=== PATIENT | female | born 1950 | race Caucasian/White ===

== ENCOUNTER 2018-06-07 06:33 | Emergency (ER) | payer MEDICARE, OTHER ==
[2018-06-07] MEDS ORDERED: ATOR10TA24 PO (06:57)
--- NOTE | 2018-06-07 07:16 | ER Report ---
History and Physical Time Seen By MD: 07:16 Hx. of Stated Complaint: PT ESCORTED IN BY EMS. PT WAS TRAVELING TO [place] FROM [facility]. PT RAN OUT OF GAS BY [place]. PTS FAMILY WAS EXPECTING HER ARRIVAL 16 HOURS AGO. WHEN EMS ARRIVED PT WAS CONFUSED, BP WAS HIGH. DECISION WAS MADE TO COME IN TO BE EVALUATED. PTS FAMILY ON THEIR WAY FROM [place]. HPI/ROS CHIEF COMPLAINT: Altered mental status HISTORY OF PRESENT ILLNESS: Patient is a 67-year-old female who is brought in by EMS after being found near [place] patient had been traveling from [facility] to [place] when she ran out of gas. She is was found to be somewhat confused and hypertensive so she was brought into the emergency department for evaluation. Apparently the family was expecting her 16 hours prior to when she was brought into the emergency department. They are currently aware that she isn't I [facility] and are traveling from [place] to get her. REVIEW OF SYSTEMS: Constitutional: [No fever, no chills.] Eyes: [No discharge.] ENT: [No sore throat.] Cardiovascular: [No chest pain, no palpitations.] Respiratory: [No cough, no shortness of breath.] Gastrointestinal: [No abdominal pain, no vomiting.] Genitourinary: [No hematuria.] Musculoskeletal: [No back pain.] Skin: [No rashes.] Neurological: [No headache.] Allergies: Coded Allergies: No Known Drug Allergies (Unverified , 06/07/18) Home Meds Reported Medications Atorvastatin Calcium (LIPITOR) 10 Mg Tablet, 0.5 TAB PO QDAY, TAB 06/07/18 Past Medical/Surgical History Hypertension Hx Substance Use Disorder: No Hx Alcohol Use: No Constitutional Vital Sign - Last 24 Hours 06/07/18 06/07/18 06/07/18 06/07/18 06:41 06:47 06:48 06:57 Temp 98.4 Pulse 76 78 Resp 18 B/P (MAP) 171/105 171/105 (127) 150/90 (110) Pulse Ox 91 89 O2 Delivery Room Air 06/07/18 06/07/18 06/07/18 06/07/18 06:58 07:00 07:03 07:15 Pulse 70 B/P (MAP) 150/90 (110) 153/88 (109) 148/95 (112) Pulse Ox 91 06/07/18 06/07/18 06/07/18 06/07/18 07:18 07:30 07:35 08:00 Pulse 70 73 B/P (MAP) 162/102 (122) 148/100 (116) Pulse Ox 91 91 06/07/18 06/07/18 06/07/18 06/07/18 08:30 08:35 09:00 09:05 Pulse 68 69 B/P (MAP) 142/87 (105) 136/84 (101) Pulse Ox 93 92 Physical Exam General/Constitutional: Patient is awake, alert, nontoxic and in no acute res piratory distress. Head: Normocephalic and atraumatic. Eyes: Conjunctival clear, Pupils are equal and reactive to light. Extraocular muscles are intact and symmetrical. Sclera are clear and anicteric. Ears:External canals are clear. Tympanic membranes are clear with normal landmarks and light reflex. Nares: No rhinorrhea or bleeding. Turbinates are pink and moist. Oropharyngeal: Mucous membranes are moist. There is no pharyngeal erythema or exudate. There are no palatal petechiae. Uvula is midline and symmetrical. Neck: Supple, no adenopathy. Cardiovascular: Heart is regular rate and rhythm without audible murmurs, rubs or gallops. Pulmonary: Lungs are clear to auscultation bilaterally. There are no wheezes, rales, or rhonchi. Chest rise is symmetrical Abdomen: Soft, nontender, no guarding or peritoneal signs. Extremities: No gross deformities, No peripheral cyanosis. Able to move all 4 extremities. Neuro: Alert and oriented X3, Skin: No rashes, skin is warm dry and well perfused. Medical Decision Making Data Points Result Diagram: 06/07/18 0720 06/07/18 0720 Laboratory Hematology Test 06/07/18 07:20 Red Blood Count 5.18 M/uL (4.17-5.56) Mean Corpuscular Volume 89.3 fL (80.0-96.0) Mean Corpuscular Hemoglobin 30.4 pg (26.0-33.0) Mean Corpuscular Hemoglobin Concent 34.0 g/dL (32.0-36.0) Red Cell Distribution Width 14.4 % (11.5-14.5) Mean Platelet Volume 7.7 fL (7.2-11.1) Neutrophils (%) (Auto) 77.3 % (39.4-72.5) Lymphocytes (%) (Auto) 16.1 % (17.6-49.6) Monocytes (%) (Auto) 5.6 % (4.1-12.4) Eosinophils (%) (Auto) 0.3 % (0.4-6.7) Basophils (%) (Auto) 0.7 % (0.3-1.4) Nucleated RBC Relative Count (auto) 0.0 /100WBC Neutrophils # (Auto) 6.6 K/uL (2.0-7.4) Lymphocytes # (Auto) 1.4 K/uL (1.3-3.6) Monocytes # (Auto) 0.5 K/uL (0.3-1.0) Eosinophils # (Auto) 0.0 K/uL (0.0-0.5) Basophils # (Auto) 0.1 K/uL (0.0-0.1) Nucleated RBC Absolute Count (auto) 0.00 K/uL Prothrombin Time 13.5 seconds (12.0-14.4) Prothromb Time International Ratio 1.03 Activated Partial Thromboplast Time 35 seconds (23-35) Sodium Level 139 mmol/L (137-145) Potassium Level 3.7 mmol/L (3.5-5.0) Chloride Level 104 mmol/L (98-107) Carbon Dioxide Level 26 mmol/L (22-31) Blood Urea Nitrogen 8 mg/dl (7-18) Creatinine 0.80 mg/dl (0.52-1.04) Glomerular Filtration Rate Calc > 60.0 Random Glucose 142 mg/dl (75-110) Calcium Level 9.2 mg/dl (8.4-10.2) Total Bilirubin 0.6 mg/dl (0.2-1.3) Aspartate Amino Transf (AST/SGOT) 20 U/L (0-35) Alanine Aminotransferase (ALT/SGPT) 24 U/L (0-56) Alkaline Phosphatase 107 U/L (0-126) Troponin I < 0.012 ng/ml Total Protein 7.3 g/dl (6.3-8.2) Albumin 4.3 g/dl (3.5-5.0) Chemistry Test 06/07/18 07:20 White Blood Count 8.5 k/uL (4.5-11.0) Red Blood Count 5.18 M/uL (4.17-5.56) Hemoglobin 15.7 g/dL (12.0-16.0) Hematocrit 46.2 % (34.0-47.0) Mean Corpuscular Volume 89.3 fL (80.0-96.0) Mean Corpuscular Hemoglobin 30.4 pg (26.0-33.0) Mean Corpuscular Hemoglobin Concent 34.0 g/dL (32.0-36.0) Red Cell Distribution Width 14.4 % (11.5-14.5) Platelet Count 254 K/uL (150-450) Mean Platelet Volume 7.7 fL (7.2-11.1) Neutrophils (%) (Auto) 77.3 % (39.4-72.5) Lymphocytes (%) (Auto) 16.1 % (17.6-49.6) Monocytes (%) (Auto) 5.6 % (4.1-12.4) Eosinophils (%) (Auto) 0.3 % (0.4-6.7) Basophils (%) (Auto) 0.7 % (0.3-1.4) Nucleated RBC Relative Count (auto) 0.0 /100WBC Neutrophils # (Auto) 6.6 K/uL (2.0-7.4) Lymphocytes # (Auto) 1.4 K/uL (1.3-3.6) Monocytes # (Auto) 0.5 K/uL (0.3-1.0) Eosinophils # (Auto) 0.0 K/uL (0.0-0.5) Basophils # (Auto) 0.1 K/uL (0.0-0.1) Nucleated RBC Absolute Count (auto) 0.00 K/uL Prothrombin Time 13.5 seconds (12.0-14.4) Prothromb Time International Ratio 1.03 Activated Partial Thromboplast Time 35 seconds (23-35) Glomerular Filtration Rate Calc > 60.0 Calcium Level 9.2 mg/dl (8.4-10.2) Total Bilirubin 0.6 mg/dl (0.2-1.3) Aspartate Amino Transf (AST/SGOT) 20 U/L (0-35) Alanine Aminotransferase (ALT/SGPT) 24 U/L (0-56) Alkaline Phosphatase 107 U/L (0-126) Troponin I < 0.012 ng/ml Total Protein 7.3 g/dl (6.3-8.2) Albumin 4.3 g/dl (3.5-5.0) Coagulation Test 06/07/18 07:20 Prothrombin Time 13.5 seconds Prothromb Time International Ratio 1.03 Activated Partial Thromboplast Time 35 seconds EKG/Imaging EKG Interpretation EKG shows normal sinus rhythm with left axis deviation, no prior EKG to compare with. Monitor Interpretation: Normal Sinus Rhythm Imaging FACILITY: [facility] PATIENT NAME: Wendy Rea : 1950 MR: [id number] V: [id number] EXAM DATE: ORDERING PHYSICIAN: LEOLA CAMPBELL TECHNOLOGIST: Location: [facility] [place] Patient: Wendy Rea : 1950 Visit/Account:[id number] Date of Sevice: 06/07/[address] scan without contrast COMPARISONS: None ADDITIONAL PERTINENT HISTORY: Altered mental status TECHNIQUE: Multiple axial images were obtained from the skull base to the vertex without IV contrast. One of the following dose optimization techniques was utilized in the performance of this exam: Automated exposure control; adjustment of the mA and/or kV according to the patient's size; or use of an iterative reconstruction technique. Specific details can be referenced in the facility's radiology CT exam operational policy. FINDINGS: Midline shift: Negative Ventricles: Negative Brain parenchyma: Negative Extra-axial spaces: Negative Intracranial vasculature: Cavernous internal carotid and distal vertebral artery calcifications. Otherwise negative Osseous structures: Negative Paranasal sinuses and mastoid air cells: Negative Surrounding soft tissues and orbits: Negative IMPRESSION: 1. Mild age related changes as described above. 2. No evidence of acute intracranial pathology. Report Dictated By: Luis E Torres MD at 06/07/2018 8:12 AM Report E-Signed By: Luis E Torres MD at 06/07/2018 8:14 AM WSN:[id number] ED Course/Re-evaluation Clinical Indication for ER IV: IV Access ED Course 06/07/2018 7:31:13 am patient seems alert and cooperative this time. We will perform medical screening exam including CT scan of the head and cardiac workup. If medical workup is unremarkable we will discharge the patient home with her family when they arrive. 06/07/2018 10:24:17 am workup negative I was told by nursing staff that daughter had arrived to the room when I went to the room to go talk to the pat ient and the daughter they have apparently had left prior to be given follow-up. There was no specific plan other than to have her follow-up with her primary care provider. The patient's nurse, Hiram did call and we were able to reach the daughter they will return for discharge instructions Decision to Disposition Date: Jun 07, 2018 Decision to Disposition Time: 10:24 Depart Departure Latest Vital Signs Vital Signs Date Time Temp Pulse Resp B/P (MAP) Pulse Ox O2 Delivery O2 Flow Rate FiO2 06/07/18 09:05 69 92 06/07/18 09:00 136/84 (101) 06/07/18 06:41 98.4 18 Room Air Impression: Primary Impression: Elevated blood pressure reading with diagnosis of hypertension Condition: Improved Disposition: HOME OR SELF-CARE Patient Instructions: Chronic Hypertension (ED) LEOLA CAMPBELL MD Jun 07, 2018 07:16
--- NOTE | 2018-06-07 07:20 | EKG ---
FACILITY: PATIENT NAME: NORM MOORE : [id number] MR: [id number] V: [id number] EXAM DATE: ORDERING PHYSICIAN: LEOLA CAMPBELL TECHNOLOGIST: VANDANA Castle Reason : Blood Pressure : / mmHG Vent. Rate : 065 BPM Atrial Rate : 065 BPM P-R Int : 152 ms QRS Dur : 094 ms QT Int : 364 ms P-R-T Axes : 029 -35 020 degrees QTc Int : 378 ms Normal sinus rhythm Left axis deviation Abnormal ECG No previous ECGs available Confirmed by Garret Roman ([id number]) on 06/07/2018 7:25:06 AM Referred By: Confirmed By:Garret Latif
[2018-06-07 07:43] LABS: PLATELET COUNT, AUTOMATED 254 K/uL (150-450)
[2018-06-07 07:48] LABS: INR 1.03
--- NOTE | 2018-06-07 08:17 | RADIOLOGY IMAGING REPORT ---
FACILITY: [facility] [place] PATIENT NAME: Wendy Rea : 1950 MR: [id number] V: [id number] EXAM DATE: ORDERING PHYSICIAN: LEOLA CAMPBELL TECHNOLOGIST: Location: [facility] Patient: Wendy Rea : 1950 Visit/Account:[id number] Date of Sevice: 06/07/[address] scan without contrast COMPARISONS: None ADDITIONAL PERTINENT HISTORY: Altered mental status TECHNIQUE: Multiple axial images were obtained from the skull base to the vertex without IV contrast . One of the following dose optimization techniques was utilized in the performance of this exam: Aut omated exposure control; adjustment of the mA and/or kV according to the patient's size; or use of an iterative reconstruction technique. Specific details can be referenced in the facility's radiology CT exam operational policy. FINDINGS: Midline shift: Negative Ventricles: Negative Brain parenchyma: Negative Extra-axial spaces: Negative Intracranial vasculature: Cavernous internal carotid and distal vertebral artery calcifications. Ot herwise negative Osseous structures: Negative Paranasal sinuses and mastoid air cells: Negative Surrounding soft tissues and orbits: Negative IMPRESSION: 1. Mild age related changes as described above. 2. No evidence of acute intracranial pathology. Report Dictated By: Luis E Torres MD at 06/07/2018 8:12 AM Report E-Signed By: Luis E Torres MD at 06/07/2018 8:14 AM WSN:[id number]
--- NOTE | 2018-06-07 08:39 | RADIOLOGY IMAGING REPORT ---
FACILITY: [facility] PATIENT NAME: Wendy Rea : 1950 MR: [id number] V: [id number] EXAM DATE: ORDERING PHYSICIAN: LEOLA CAMPBELL TECHNOLOGIST: Location: [facility] Patient: Wendy Rea : 1950 Visit/Account:[id number] Date of Sevice: 06/07/2018 Exam type: CHEST SINGLE AP History: Chest Pain Comparison: None. Findings: The lungs are free of focal infiltrates, pleural effusions, pulmonary edema or pneumothorax. Cardiac silhouette is mildly enlarged. There is a small hiatal hernia in the retrocardiac space. IMPRESSION: 1. Mild cardiomegaly although no evidence of acute pulmonary consolidation or pulmonary edema Small hiatal hernia Report Dictated By: Irlanda Bauer MD at 06/07/2018 8:26 AM Report E-Signed By: Irlanda Bauer MD at 06/07/2018 8:35 AM WSN:[email or web address]
[2018-06-07 09:00] VITALS: BP 136/84
== END 2018-06-07 10:28 | disposition home or self-care (01) ==
LOC: ER 06:38
DX: I10 Essential (primary) hypertension (principal)
CPT/HCPCS: 70450; 71045; 82040; 82247; 82310; 82374; 82435; 82565; 82947; 84075; 84132; 84155; 84295; 84450; 84460; 84484; 84520; 85025; 85610; 85730; 93005; 99284